=== PATIENT | female | born 1990 | race Two or more races ===

== ENCOUNTER 2016-11-24 14:37 | Emergency (ER) | payer BC, MEDICAID, OTHER ==
[~2016-11-24] VITALS: Ht 172.7 cm; Wt 83.5 kg
[2016-11-24] MEDS ORDERED: SPIR25TA PO (15:02)
[2016-11-24] MEDS ORDERED: HYDR25TA4 PO (15:02)
[2016-11-24] MEDS ORDERED: DEXT10TA7 PO (15:02)
[2016-11-24] MEDS ORDERED: METO25TA PO (15:02)
[2016-11-24] MEDS ORDERED: AMLO10TA2 PO (15:02)
[2016-11-24] MEDS ORDERED: ETON1VAG VG (15:02)
[2016-11-24 17:03] VITALS: BP 121/76
== END 2016-11-24 17:04 | disposition home or self-care (01) ==
LOC: ER 14:40
DX: T78.40XA Allergy, unspecified, initial encounter (principal); R56.9 Unspecified convulsions; F10.20 Alcohol dependence, uncomplicated; F17.210 Nicotine dependence, cigarettes, uncomplicated
CPT/HCPCS: 99283; A4606; Z7610

== ENCOUNTER 2017-04-01 16:24 | Emergency (ER) | payer OTHER ==
[~2017-04-01] VITALS: Ht 170.2 cm; Wt 83.0 kg
[~2017-04-01 16:24] MED LIST: AMLO10TA2 PO; DEXT10TA7 PO; ETON1VAG VG; HYDR25TA4 PO; METO-302 PO; SPIR25TA PO
[2017-04-01 16:44] VITALS: BP 138/68
== END 2017-04-01 17:06 | disposition home or self-care (01) ==
LOC: ER 16:27
DX: Z76.0 Encounter for issue of repeat prescription (principal); G40.909 Epilepsy, unspecified, not intractable, without status epilepticus; I10 Essential (primary) hypertension; F90.9 Attention-deficit hyperactivity disorder, unspecified type; F17.200 Nicotine dependence, unspecified, uncomplicated
CPT/HCPCS: 99281; A4606; Z7610; Z7502

== ENCOUNTER 2017-07-12 18:34 | Emergency (ER) | payer OTHER ==
[~2017-07-12] VITALS: Ht 172.7 cm; Wt 83.5 kg
[2017-07-12 18:40] VITALS: BP 164/98
== END 2017-07-12 19:52 | disposition home or self-care (01) ==
LOC: ER 18:39
DX: L72.0 Epidermal cyst (principal); M77.9 Enthesopathy, unspecified; F41.9 Anxiety disorder, unspecified; G47.00 Insomnia, unspecified; F90.9 Attention-deficit hyperactivity disorder, unspecified type
CPT/HCPCS: A4606; Z7610

== ENCOUNTER 2017-07-26 09:43 | Emergency (ER) | payer OTHER ==
[~2017-07-26] VITALS: Ht 172.7 cm; Wt 90.7 kg
--- NOTE | 2017-07-26 09:43 | NUR ---
[facility] FOR SEIZURE, BS=67MG/DL TOOL AND DIE MAKER LEVEL FIVE. NO TRAUMA NOTED. PT AAO X3, VSS. RR EVEN AND UNLABORED. SZ PRECAUTIONS IN PLACE. PENDING MD SILVERMAN.
[2017-07-26 10:20] LABS: BASOPHILS # (AUTO) 0.1 /CMM (0.0-0.2); BASOPHILS % (AUTO) 0.8 % (0.0-2.0); EOSINOPHILS # (AUTO) 0.1 /CMM (0.0-0.7); EOSINOPHILS % (AUTO) 1.9 % (0.0-6.0); HEMATOCRIT 40 % (33-45); HEMOGLOBIN 13.3 g/dL (11.5-14.8); LYMPHOCYTES # (AUTO) 2.8 /CMM (0.8-4.8); MEAN CORPUSCULAR HEMOGLOBIN 30 PG (26.0-33.0); MEAN CORPUSCULAR HGB CONC 33 g/dl (31.0-36.0); MEAN CORPUSCULAR VOLUME 89 fL (82-100); MONOCYTES # (AUTO) 0.4 /CMM (0.1-1.30); NEUTROPHILS # (AUTO) 4.1 /CMM (1.8-8.9); NEUTROPHILS % (AUTO) 55.3 % (43.0-81.0); PLATELET COUNT (AUTO) 275 /CMM (150-450); RDW COEFFICIENT OF VARIATION 11.4 (11.5-15.0); RED BLOOD CELL COUNT(AUTO) 4.48 MIL/uL (4.0-5.2); WHITE BLOOD COUNT (AUTO) 7.5 K/uL (4.3-11.0)
--- NOTE | 2017-07-26 10:24 | NUR ---
URINE OBTAINED SENT TO LAB. PT AMBULATORY WITH STEADY GAIT.
[2017-07-26 10:32] LABS: CALCIUM, SERUM 8.7 mg/dL (8.5-10.1); CREATININE 0.9 mg/dL (0.6-1.3); POTASSIUM 4.9 mmol/L (3.5-5.1)
[2017-07-26 11:23] LABS: APPEARANCE,URINE Clear (CLEAR); BILIRUBIN,URINE Negative (NEGATIVE); BLOOD, URINE Negative Ery/uL (NEGATIVE); COLOR,URINE Yellow (YELLOW); KETONES,URINE Negative (NEGATIVE); LEUKOCYTE ESTERASE ,URINE Negative (NEGATIVE); NITRITE, URINE Negative (NEGATIVE); PROTEIN,URINE Negative (NEGATIVE); UGLUCOSE Negative (NEGATIVE); UROBILINOGEN,URINE 0.2 EU/dL (0.2)
[2017-07-26 11:47] VITALS: BP 127/68
== END 2017-07-26 11:51 | disposition home or self-care (01) ==
LOC: ER 09:46
DX: S00.512A Abrasion of oral cavity, initial encounter (principal); G40.909 Epilepsy, unspecified, not intractable, without status epilepticus; F90.9 Attention-deficit hyperactivity disorder, unspecified type; I10 Essential (primary) hypertension; F17.200 Nicotine dependence, unspecified, uncomplicated; X58.XXXA Exposure to other specified factors, initial encounter; Y92.89 Other specified places as the place of occurrence of the external cause; Y93.89 Activity, other specified; Y99.8 Other external cause status
CPT/HCPCS: 36415; 80048; 81001; 84703; 85025; 93005; 99285; A4606; Z7610; 81000-TC